=== PATIENT | female | born 1970 | race Caucasian/White ===

== ENCOUNTER → 2019-12-08 17:01 | Outpatient (CLI) | payer OTHER, SELFPAY ==
[2019-12-08 16:52] VITALS: BMI 32.1
--- NOTE | 2019-12-08 17:02 | RAD_ITS ---
STUDY: X-RAY - LEFT ELBOW REASON FOR EXAM: Female, 49 years old. FALL, PAIN TECHNIQUE: 3 view(s) of the elbow. COMPARISON: None. FINDINGS: Normal visualized humerus, radius and ulna. Normal radiocapitellar and ulnotrochlear articulations. The soft tissue structures are unremarkable. RAD/Elbow min 3 Views IMPRESSION: Normal x-ray examination of the elbow. Electronically Signed: Matt Carter MD at 18:02 EDT , Service support ,
== END ==
PROVIDERS: PCP Family Medicine; Referring Provider Physician Assistant Surgical; Visit Provider Physician Assistant Surgical
DX: S50.02XA Contusion of left elbow, initial encounter (principal); X58.XXXA Exposure to other specified factors, initial encounter; Y93.9 Activity, unspecified; Y92.9 Unspecified place or not applicable; Y99.9 Unspecified external cause status
CPT/HCPCS: 73080

== ENCOUNTER 2020-01-19 07:30 | Outpatient (RCR) | payer OTHER, SELFPAY ==
[2019-12-18 08:03] VITALS: BMI 32.1
--- NOTE | 2020-01-05 15:32 | HP.OTEVAL ---
Patient's Visit Information MINDY HAGEN is a 49 year old F, referred to Occupational Therapy by BLAISE Sin, with a diagnosis of left elbow contusion. Date of Evaluation: 01/05/20 Occupational Therapist: MALA Moyer/Vane, CHT - Subjective This 49 year old female was seen for OT eval with dx of left elbow contusion- pt states she works at [employer] and tripped over some safety eq. pt states her left forearm is uncomfortable sore mm pain - pt is right handed but limited use of left UE has decreased her ind. with ADLs and IADls - Pain left forear/wrist elbow 1 Pain Intensity Range: 1, 4 - ROM Elbow: right 0/145 left 0/145 Forearm: right 85 left 35 supination WNL bilateral Wrist: right 65/75 left 65/60 - Strength Milling/Polishing Operator: right 70# left 30# Lateral Pinch: right 12# left 10# Tripod Pinch: right 10# left 10# Tip-to-Tip Pinch: right 10# left 8# - Sensation Sensation Comments: denies - Goals Goal:: pt will demo a increase in left switch house operator strength by 20# or greater to return pt to PLOF with ADLs and IADLS by d.c Goal:: pt will demo full left forearm supination to hold and recive change by d/c Goal:: pt will report pain no greater than 1/10 with use of left UE with ADLs and IADL by d/c - Rehabilitation General Assessment: pt demo a decrease in left switch house operator strength and forearm supination. pain at times with ADls pt currently is limited with ADLS and IADs due to pain, weakness and limited ROM. Pt would benefit from skilled OT services 2-3 x week for 4 weeks to return pt to [facility]. Today therapist ed. pt on AAROM, PROM and isometric UB ex. pt demo understanding and agree to POC. Rehabilitation Potential: Good - Anticipated Interventions A/AAROM/PROM, Strengthening, Modalities, Joint Protection/Energy Conservation - Visit Plan Frequency: 2-3x /Week Duration: 4 Weeks TEXT: Thank you for the opportunity to evaluate your patient. For Medicare and Medicare HMO plans, please review the plan of care and approve it. It will need to be FAXED BACK to us at [phone] for Medicare purposes. Please let me know if there are questions or concerns regarding this plan of care. Physician Signature: Date:
--- NOTE | 2020-01-19 08:42 | HP.OTDCSUM ---
It has been my pleasure to treat MINDY HAGEN under orders from BLAISE Sin, for the diagnosis of left elbow contusion for a total of 4 visit(s). Please see the following information for a summary of their discharge status. 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 pt demo full wrist and forearm ROM. pt reports IND with ADls and IADLs pt has met goals and is D/C at this time with HEP to continue to increase her strength Patient Goals: Regain Mobility, Regain Strength, Decrease Pain, Use Hand/Wrist/Arm Normally Again Goal:: pt will demo a increase in left acoustic warfare analyst strength by 20# or greater to return pt to PLOF with ADLs and IADLS by d.c Goal:: pt will demo full left forearm supination to hold and recive change by d/c Goal:: pt will report pain no greater than 1/10 with use of left UE with ADLs and IADL by d/c Plan: D/C Discharge Comments: pt is doing well with therapy and has retured to using her left are with daily occupations. pt reports she is ind. with ADls and IADLs. states she has started yoga again and feeling good. pt agree to D/C with HEP to cont. strengthening. If there are questions or concerns regarding this patient's occupational therapy, please fell free to call me at [phone]. Thank you for the referral of this patient. Sincerely, Selena Ashraf, OTR/L, CHT
== END 2020-01-19 19:00 | disposition home or self-care (01) ==
LOC: OT 07:30
PROVIDERS: Referring Provider Physician Assistant Surgical; Visit Provider Physician Assistant Surgical
DX: S50.02XD Contusion of left elbow, subsequent encounter (principal)
CPT/HCPCS: 97110; 97166

== ENCOUNTER 2020-07-22 15:26 | Outpatient (RCR) | payer OTHER, SELFPAY ==
[2020-01-08 08:05] VITALS: BMI 32.1
== END 2020-09-27 23:59 ==
LOC: IMMUN 15:26
PROVIDERS: PCP Family Medicine; Visit Provider Family Medicine
DX: Z23 Encounter for immunization (principal)
CPT/HCPCS: 0001A; 0002A; 91300

== ENCOUNTER → 2020-09-08 | Outpatient (CLI) | payer OTHER, SELFPAY ==
[2020-01-08 08:05] VITALS: BMI 32.1
[2020-09-13 16:09] LABS: Age Gdln ACOG Testing 30-65 (.)
[2020-09-13 18:57] LABS: HPV APTIMA, High Risk Negative (Negative)
[2020-09-13 18:58] LABS: HPV Reflexed? YES, CHARGE PATIENT
== END | disposition home or self-care (01) ==
PROVIDERS: PCP Family Medicine; Referring Provider Family Medicine; Visit Provider Family Medicine
DX: Z12.4 Encounter for screening for malignant neoplasm of cervix (principal)
CPT/HCPCS: 87624; 88175; G0145

== ENCOUNTER → 2021-03-10 15:55 | Outpatient (CLI) | payer OTHER, SELFPAY ==
--- NOTE | 2021-03-10 16:00 | US_ITS ---
STUDY: ULTRASOUND OF THE FEMALE PELVIS - COMPLETE REASON FOR EXAM: Female, 51 years old. BLEEDING LMP: Unknown. TECHNIQUE: Transabdominal, patient refused transvaginal study TECHNICAL QUALITY: Adequate. COMPARISON: None. FINDINGS: The uterus is anteverted and is in a midline position. The uterus measures 7.8 x 4.2 x 3.4 cm. Normal uterine cervix. The endometrium measures 4.8 mm in thickness, and is hyperechoic. There is no demonstrated endometrial mass. There is no demonstrated myometrial mass. I.U.D. - The patient does not have an I.U.D. The right ovary is visualized. The right ovary measures 4.1 x 3.6 x 3.3 cm. There is a simple 3.7 cm cyst.. There is normal arterial and normal venous vascularity. The left ovary is visualized. The left ovary measures 1.7 x 1.1 x 1.1 cm. There is no left ovarian cyst or ovarian mass. There is no visualized left adnexal mass or complex lesion. There is normal arterial and normal venous vascularity. There is no fluid in the cul-de-sac. The bladder is sonographically normal with estimated capacity of 492.2 mL US/Pelvic (Non ) IMPRESSION: No suspicious sonographic findings, simple right ovarian cyst. Electronically Signed: Robel Agee MD at 16:49 EST , Service support ,
== END ==
PROVIDERS: PCP Family Medicine; Referring Provider Family Medicine; Visit Provider Family Medicine
DX: N95.0 Postmenopausal bleeding (principal)
CPT/HCPCS: 76856

== ENCOUNTER → 2021-03-31 | Outpatient (CLI) | payer OTHER, SELFPAY ==
--- NOTE | 2021-03-31 15:45 | EMB_PTH ---
PATIENT: MINDY HAGEN LOC: [facility] U#:[id number] AGE/SX: 51/F ROOM: RE03/31/[address]: Dr. Avery Yoon MD : 1970 BED: DIS: 03/31/2021 SPEC #: [id number] RECD: 03/31/21 16:32 STATUS: MICHAEL REChina #: [id number] CLAY: 03/31/21 15:[address]: Avery Yoon DEPT: SURGICAL PATHOLOGY RECD BY: Portillo Chand ENTERED: 04/03/21 10:59 SP TYPE: ENDOM BX/C MAMTA DR: Dr. Zahraa Marshall MD Tissues: Endometrium, NOS Procedures: Surgery Specimen Level IV HEADER OPERATION: Endometrial biopsy PRE-OP DIAGNOSIS: N95.0 TISSUE SUBMITTED: Endometrial biopsy MICROSCOPIC DIAGNOSIS Endometrium, biopsy: Strips of benign superficial glandular mucosa. AM:sonja 04/04/2021 MICROSCOPIC DESCRIPTION Slides are reviewed. GROSS DESCRIPTION Received in fixative is one container labeled with the patient's name and designated endometrial biopsy. The specimen consists of multiple irregular fragments of light garcia soft tissue that in aggregate measure 0.9 x 0.3 x <0.1 cm. The specimen is totally submitted in one cassette. / AM:sonja 04/03/21 TC:5 CPT: 38867
== END | disposition home or self-care (01) ==
LOC: LABSPEC 16:23
PROVIDERS: PCP Family Medicine; Visit Provider Obstetrics & Gynecology
DX: N95.0 Postmenopausal bleeding (principal)
CPT/HCPCS: 88305

== ENCOUNTER 2021-06-06 14:59 | Outpatient (CLI) | payer OTHER, SELFPAY | END 2021-06-06 23:59 | disposition home or self-care (01) | LOC: IMMUN 06-07 15:06 | PROVIDERS: PCP Family Medicine; Visit Provider Family Medicine | DX: Z23 Encounter for immunization (principal) ==

== ENCOUNTER 2022-11-02 08:00 | Day surgery (SDC) | payer OTHER, SELFPAY ==
[2022-11-02] VITALS (7 sets, daily range): BP systolic 100–114; BP diastolic 66–74; PULSE 61–67; RESP 16–18; TEMP 36.2–36.6; O2SAT 95–100; BMI 29.6
[2022-11-02] MEDS: Lactated Ringers 1,000 ML 15 ML IV (08:19)
--- NOTE | 2022-11-02 09:36 | HP.PCM_ITS ---
HPI - General HPI Narrative MINDY HAGEN, is a 52 F who presents for screening colonoscopy. Patient has never had a colonoscopy in the past. She denies abdominal pain or blood in the stool. She denies family history of colon cancer. [facility] Medical History (Updated 10/31/22 @ 12:14 by Sheryl Urrutia) Contusion of left elbow, initial encounter Hx of gallstones Leg cramps Non-smoker Post-menopausal Wears glasses Home Medications flaxseed oil 1,300 mg-omega 3,6,9 845 mg-117 mg-117 mg capsule 1 ea PO DAILY 12/01/14 [History Last Taken Unknown] multivitamin,oe-cnqw-bflmcnxm 27 mg-0.4 mg tablet 1 tab PO DAILY 12/01/14 [History Last Taken Unknown] vitamin B complex 1 tab PO DAILY 09/14/22 [History Last Taken Unknown] Allergy/AdvReac Type Severity Reaction Status Date / Time cephalexin Allergy Rash Verified 10/31/22 12:06 Family History (Updated 09/14/22 @ 11:54 by Pippa Flaherty) Father Multiple myeloma Aunt Breast cancer Surgical History (Updated 09/14/22 @ 11:53 by Pippa Flaherty) History of dilation and curettage Social History (Updated 09/14/22 @ 11:55 by Pippa Flaherty) household members: spouse and children current occupational status: employed current occupation: [employer] Smoking Status: Never smoker Past Medical/Surgical History Planned Operation Planned Operative Procedure/s: COLONOSCOPY-OA S.O.S: No Previous Hospitalizations/Surgeries HX Hospitalizations: No HX of Surgeries: CHILDBIRTH X2 WITH EPIDURAL Any Problems With Anesthesia: No You/Your Family Experience Fever (Hyperthermia) With Anes: No Cholinesterase deficiency: No Cardiovascular Hx Chest Pain within Last 2 months: No Hx of Irregular Heartbeat and/or Afib: No Hx Heart Attack: No Hx Congestive Heart Failure: No Hx Rheumatic Fever: No Hx Hypertension: No Hx Internal Defibrillator: No Hx Pacemaker: No Hx Cardiac Catheterization: No Hx Cardiac Surgery/Stents/Etc.: No Hx Stress Test: No Hx Pain in Legs when Walking/Leg Cramps: No Respiratory Chronic Cough: No HX of Shortness of Breath: No Hoarseness: No Hx Chronic Obstructive Pulmonary Disease (COPD): No Hx Asthma: No Hx Emphysema: No Hx Sleep Apnea: No CPAP: No BIPAP: No Hx Respiratory Tract Infection/Cold (presently): No Do You Snore Loudly (louder than talking or can be heard): No Do You Often Feel Tired/ Fatigued/ Sleepy Dring Daytime?: No Has Anyone Observed You Stop Breathing During Sleep?: No Result (for STOP score): Negative Hx Smoking: No Smoking Status: Never smoker Gastrointestinal Hx Gastroesophageal Reflux: No Hx Gastrointestinal Disorders: No Hx Gastrointestinal Bleed: No Hx Ulcer: No Hx Hiatal Hernia: No Difficulty Chewing/Swallowing: No Special diet followed at home: No Hx Unplanned Weight Loss of 20#: No HX Unplanned Weight Gain of 20#: No Neurological Hx Seizures: No HX Syncope/Blackout Spells/Unconsciousness: No Hx Transient Ischemic Attacks (TIA): No Hx Multiple Sclerosis: No Hx Parkinson's Disease: No Hx Head/Neck Injury: No Hx Headaches: Yes (STATES D/T DEHYDRATION) Hx Back Injury/Pain: Yes (LOW BACK SORENESS OCC.) Recent Onset of Speech Difficulty: No Restless Legs: No Does patient have nerve stimulator: No Blood Disorder Hx Leukemia: No Bleeding Tendencies: No Hx Deep Vein Thrombosis: No Hx High Cholesterol: No Blood Transmitted Disease: No Hx Hepatitis: No Hx Cirrhosis: No Hx Anemia: No Hx Blood Disorders: No Reproduction Is Patient Lactating: No Hx Hysterectomy: No Hx Tubal Ligation: No Are You Post Menopause: No Genitourinary Hx Renal Disease: No Musculoskeletal Hx Arthritis: No Hx Rheumatoid Arthritis: No Hx Gout: No Recent Onset of an Orthopedic Problem: No Endocrine 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) Insulin: No Thyroid Disease: No Hx Steroid Therapy: No Psycho/Social Hx Substance Use: No Hx Alcohol Use: No Hx Anxiety: Yes (NO MEDS) Hx Depression: No Mental Illness: No Hx Dementia: No Miscellaneous Hx Cancer: No Recent Exposure to Contagious Disease: No Hx of C-Diff: No Any Loose Teeth: No Allergies cephalexin Allergy (Verified 10/31/22 12:06) Rash Discharge Is Pt Admitted From a Long Term, or a [place] [facility]: No After D/C, Where Do you Plan to Go: Return Home Vital Signs Vital Signs Vital Signs: 11/02/22 08:20 11/02/22 08:20 Temperature 97.9 F Temperature Source Temporal Pulse Rate 62 Respiratory Rate 18 Respiratory Pattern Normal Blood Pressure 114/71 Blood Pressure Mean 85 Blood Pressure Source Monitor Blood Pressure Position Semi-Fowlers Blood Pressure Location Right Arm Pulse Ox 100 Oxygen Delivery Method Room Air Weight Weight: 189 lb Body Mass Index (BMI) 29.6 Physical Exam Const alert and oriented x3 HEENT normocephalic Eyes PERRL Resp normal respiratory effort and normal air movement Cardio regular rate and regular rhythm GI soft to palpation, non-tender and non-distended Extremity normal to inspection Assessment & Plan Assessment/Plan (1) Encounter for screening for malignant neoplasm of colon: PLAN: I explained endoscopy in detail to the patient. I explained the risks including but not limited to stroke or heart attack with anesthesia, perforation of the GI tract, bleeding, infection. I explained that any of these could necessitate further emergency surgery. The patient understands and all questions were answered sufficiently. The patient wishes to proceed with procedure. Hector Camara MD Pager: [facility] [address] [place] [address], [address] [place] [address] Office: Surgery Risks - Colonoscopy Risks Include but are not Limited To: Risks include but are not limited to: Bleeding, perforation requiring further surgery, inability to complete colonoscopy requiring barium enema.
--- NOTE | 2022-11-02 10:07 | OP.COLON_ITS ---
Patient Name: Norma Mayfield Procedure Date: 11/02/2022 9:37 AM Date of : 1970 Age: 52 Procedure: Colonoscopy Indications: Screening for colorectal malignant neoplasm Providers: Hector Camara MD Referring MD: Hector Camara MD Medicines: Monitored Anesthesia Care Patient Profile: This is a 52 year old female. Refer to note in patient chart for documentation of history and physical. Last Colonoscopy: none. The patient's first colonoscopy is today. Complications: No immediate complications. Procedure: Pre-Anesthesia Assessment: - Prior to the procedure, a History and Physical was performed, and patient medications and allergies were reviewed. The patient's tolerance of previous anesthesia was also reviewed. The risks and benefits of the procedure and the sedation options and risks were discussed with the patient. All questions were answered, and informed consent was obtained. Prior Anticoagulants: The patient has taken no previous anticoagulant or antiplatelet agents. After reviewing the risks and benefits, the patient was deemed in satisfactory condition to undergo the procedure. After I obtained informed consent, the scope was passed under direct vision. Throughout the procedure, the patient's blood pressure, pulse, and oxygen saturations were monitored continuously. The pediatric colonoscope was introduced through the anus and advanced to the cecum, identified by appendiceal orifice and ileocecal valve. The colonoscopy was performed without difficulty. The patient tolerated the procedure well. The quality of the bowel preparation was good. Scope In: 9:48:43 AM Scope Withdrawal Time 0 hours 3 minutes 28 seconds Scope Out: 10:02:14 AM Total Procedure Duration Time 0 hours 13 minutes 31 seconds Findings: The entire examined colon appeared normal on direct and retroflexion views. Impression: - The entire examined colon is normal on direct and retroflexion views. - No specimens collected. Recommendation: - Discharge patient to home. - Resume previous diet. - Continue present medications. - Repeat colonoscopy in 10 years for screening purposes. Procedure Code(s): --- Professional --- 50737, Colonoscopy, flexible; diagnostic, including collection of specimen(s) by brushing or washing, when performed (separate procedure) Diagnosis Code(s): --- Professional --- Z12.11, Encounter for screening for malignant neoplasm of colon CPT copyright 2017 [employer]. All rights reserved. The codes documented in this report are preliminary and upon certified coder review may be revised to meet current compliance requirements. Hector Camara MD 11/02/2022 10:07:24 AM This report has been signed electronically. Number of Addenda: 0 Note Initiated On: 11/02/2022 9:37 AM
--- NOTE | 2022-11-02 10:08 | OP.CCLET_ITS ---
11/02/2022 Zahraa Marshall [facility] [address] [place] [address] Re : Colonoscopy procedure for Norma Mayfield Dear Dr. Marshall This procedure was performed on Wednesday, November 02, 2022. My impressions and recommendations are as follows: Impressions : - The entire examined colon is normal on direct and retroflexion views. - No specimens collected. Recommendations : - Discharge patient to home. - Resume previous diet. - Continue present medications. - Repeat colonoscopy in 10 years for screening purposes. My findings are described in the full procedure note, which is enclosed. If I can be of further assistance, please feel free to contact me at Doctor phone number(s): , Work: . Sincerely, Hector Camara MD 11/02/2022 10:07:24 AM This report has been signed electronically.
== END 2022-11-02 10:55 | disposition home or self-care (01) ==
LOC: EN 08:00 → AC 08:01
PROVIDERS: PCP Family Medicine; Referring Provider Family Medicine; Visit Provider Surgery
PROC: 0DJD8ZZ Inspection of Lower Intestinal Tract, Via Natural or Artificial Opening Endoscopic (ICD-10-PCS; CPT 45378; principal; 2022-11-02 08:55)
DX: Z12.11 Encounter for screening for malignant neoplasm of colon (principal); E11.649 Type 2 diabetes mellitus with hypoglycemia without coma; Z87.19 Personal history of other diseases of the digestive system
CPT/HCPCS: 45378; J7120; J2405

== ENCOUNTER → 2024-03-18 | Outpatient (CLI) | payer OTHER, SELFPAY ==
[2024-03-27 12:09] LABS: Age Gdln ACOG Testing 30-65 (.); HPV APTIMA, High Risk Negative (Negative)
[2024-03-27 13:12] LABS: HPV Reflexed? YES, CHARGE PATIENT
== END | disposition home or self-care (01) ==
LOC: LABSPEC 11:51
PROVIDERS: PCP Family Medicine; Referring Provider Family Medicine; Visit Provider Family Medicine
DX: Z12.4 Encounter for screening for malignant neoplasm of cervix (principal)
CPT/HCPCS: 87624; 88175; G0145